=== PATIENT | male | born 1955 | race Caucasian/White ===

== ENCOUNTER → 2023-06-03 | Outpatient (CLI) | payer OTHER, SELFPAY ==
--- NOTE | 2023-06-03 07:38 | CT_ITS ---
STUDY: CT CHEST WITHOUT CONTRAST REASON FOR EXAM: Male, 68 years old. Chronic cough. Hypertension. RADIATION DOSAGE (If Supplied By Facility): CTDIvol = ( 16.92 ) mGy, DLP = ( 612.94 ) mGycm TECHNIQUE: Transaxial imaging was performed without the administration of intravenous contrast material. Multiplanar coronal and sagittal images were reformatted. Individualized dose optimization techniques were used for this CT. COMPARISON: No relevant priors. FINDINGS: CHEST Fat-containing bilateral axillary lymph nodes. Minimal increased linear markings in the anterior medial aspect of the right upper lobe suggestive of a linear scar. Minimal linear scarring in the anterior aspect of the left lower lobe. There is no demonstrated pleural abnormality. Normal heart and pericardium. No coronary artery calcification is seen. Normal mediastinum. Normal hilar regions. Normal unenhanced pulmonary arteries. There is atherosclerotic calcification of the aortic arch. Normal osseous structures. Small hiatal hernia. There is a 2.7 cm x 2.3 cm fat-containing nodule in the left adrenal gland suggestive of left adrenal adenoma. There is a 2.1 cm cyst in the lateral upper pole of the left kidney. CT/Chest without Contrast IMPRESSION: Minimal scarring in the anterior medial aspect of the right upper lobe as well as linear scarring in the interest of the left lower lobe. Electronically Signed: Romeo Christianson MD at 13:15 EDT ,
== END | disposition home or self-care (01) ==
LOC: CT 07:34
DX: R05.9 Cough, unspecified (principal)
CPT/HCPCS: 71250